=== PATIENT | male | born 2005 | race Caucasian/White ===

== ENCOUNTER 2025-05-08 12:12 | Inpatient (IN) | payer OTHER, SELFPAY ==
[2025-05-08 12:22] VITALS: BP 132/76; PULSE 104; RESP 16; O2SAT 98; BMI 21.4
--- NOTE | 2025-05-08 12:30 | ED_ITS ---
HPI - General Adult General Chief complaint: Psychiatric Symptoms Stated complaint: CRISIS, MENTALLY EXHAUSTED Source: patient and EMS Mode of arrival: ambulatory Limitations: other ( poor historian) History of Present Illness ED Provider: ELIUD Cabello HPI narrative: this is a 20-year-old male history of OCD, ADHD presenting to the emergency department with feeling overwhelmed. Reports increasing life stressors. Reports he recently got a new job which seems to be triggering all of this. He reports he is having racing thoughts and might be slightly manic according to his family. He tells me he is getting easily worked up and is having a hard time calming himself down as well as sleeping. He reports he has had no sleep in a few days. Reports he recently stopped using marijuana and smoking. Denies suicidal and homicidal ideation. Denies alcohol. No medical complaints Related Data Home Medications ?Medication ?Instructions ?Recorded ?Confirmed No Known Home Meds 05/08/25 05/08/25 Allergies Allergy/AdvReac Type Severity Reaction Status Date / Time No Known Allergies Allergy Verified 05/08/25 14:46 Review of Systems 2 Review of Systems: Yes all other systems are reviewed and are negative PMFSH Past Medical History Attestation statement: The following information was validated with the patient. Source: old records reviewed and nursing notes reviewed Social History Social History Alcohol intake: current Alcohol intake frequency: holidays/special occasions only Smoked in Last 30 Days: Yes Use of substances other than those prescribed or required for medical reasons: Yes Substance Use Type: Marijuana Substance Use Frequency: Chronic Longstanding Advance Directives: No Advance Directives Information Provided: Yes Physical Exam ED Exam Exam: Appearance: Alert.? Oriented X3.? No acute distress.?+patient seems overwhelmed, anxious. Unable to sit still. Head: Normocephalic, atraumatic, no step-offs or deformities Eyes: Pupils equal, round and reactive to light.? ENT: Pharynx normal.? Neck: Normal inspection.? Neck supple.? CVS: Normal heart rate and rhythm.? Pulses normal.? Respiratory: No respiratory distress.? Breath sounds normal.? Abdomen: Soft and nontender.? Skin: Skin warm and dry.? Normal skin color.? Normal skin turgor.? Extremities: No lower extremity edema.? No calf ttp. 5/5 strength to bilateral upper and lower extremities Back: No midline tenderness, no C-spine tenderness, full range of motion, no CVA tenderness bilaterally Neuro: Oriented X 3.? No motor deficit.? No sensory deficit. CN 2-12 intact Vital Signs: Vital Signs - 24 hr 05/10/25 15:34 05/11/25 06:00 Temperature 98.2 F 97.6 F Pulse Rate 79 88 Respiratory Rate 18 16 Blood Pressure 139/78 116/87 Pulse Oximetry 100 100 Oxygen Delivery Method Room Air Room Air BMI result Body Mass Index 21.4 Course Reevaluation(s) Reevaluation #1: CBC unremarkable. Chemistry with no acute findings needing intervention. UA without infection. Urine toxicology negative. Ethanol pending. At this time patient will be placed into observation to allow more time to be evaluated by care team. At time observation started patient common cooperative no acute distress will continue to monitor Time: 13:23 Reevaluation #2: Time: 06:12 Date: 05/09/25 Provider: Daniel Saldana MD Patient in physician observation for psychiatric evaluation.? No acute events reported overnight. No current complaints. VS stable.? Patient was evaluated by CARE team and the patient meets inpatient level of care. Patient on a Section 12. Will continue to monitor. Reevaluation #3: Time: 09:01 Date: 05/10/25 Provider: Lorenzo Atkinson MD Patient in physician observation for psychiatric evaluation.? No acute events reported overnight. No current complaints. VS stable.? Patient is in bed search status/pending CARE team evaluation. Will continue to monitor. Additional Reevaluation(s): Time: 07:49 Date: 05/11/25 Provider: Lorenzo Atkinson MD Patient in physician observation for psychiatric evaluation.? No acute events reported overnight. No current complaints. VS stable.? Patient is in bed search status/pending CARE team evaluation. Will continue to monitor. 05/11/2025 13:03 patient will be admitted to the psychiatric unit this will end the ED observation Medications Administered Generic Name Dose Route Start Last Admin Trade Name Freq PRN Reason Stop Dose Admin Lorazepam 2 mg 05/09/25 12:59 05/09/25 18:26 Lorazepam 1 Mg Tablet PO 1 mg Q4H PRN Administration Agitation, anxiety Discontinued Medications Generic Name Dose Route Start Last Admin Trade Name Tona JUAREZN Reason Stop Dose Admin Hydroxyzine HCl 25 mg 05/09/25 20:24 05/09/25 20:38 Hydroxyzine Hcl 25 Mg Tablet PO 05/09/25 20:25 25 mg ONCE ONE Administration Hydroxyzine HCl 25 mg 05/10/25 03:40 05/10/25 03:50 Hydroxyzine Hcl 25 Mg Tablet PO 05/10/25 03:41 25 mg ONCE ONE Administration Hydroxyzine HCl 25 mg 05/10/25 09:45 05/10/25 09:51 Hydroxyzine Hcl 25 Mg Tablet PO 05/10/25 09:46 25 mg ONCE ONE Administration Lorazepam 1 mg 05/08/25 12:29 05/08/25 12:44 Lorazepam 1 Mg Tablet PO 05/08/25 12:30 Not Given ONCE ONE Melatonin 6 mg 05/08/25 21:59 05/08/25 22:04 Melatonin 3 Mg Tablet PO 05/08/25 22:00 6 mg ONCE ONE Administration Melatonin 6 mg 05/09/25 21:22 05/09/25 21:28 Melatonin 3 Mg Tablet PO 05/09/25 21:23 6 mg ONCE ONE Administration Melatonin 3 mg 05/10/25 21:19 05/10/25 21:28 Melatonin 3 Mg Tablet PO 05/10/25 21:20 3 mg ONCE ONE Administration Nicotine 14 mg 05/08/25 19:24 05/09/25 00:53 Nicotine 14 Mg Patch.Td24 TRANSDERMA 05/08/25 19:25 Not Given ONCE ONE Olanzapine 2.5 mg 05/08/25 12:30 05/08/25 12:46 Olanzapine 2.5 Mg Tablet PO 05/08/25 12:31 2.5 mg ONCE ONE Administration Medical Decision Making Medical Decision Making [facility] Narrative: 1232 20-year-old male presents with racing thoughts and feeling overwhelmed. Reports recent life stressors Such as his new job and family. Physical exam patient unable to sit still, anxious appearing, racing thoughts. History and physical exam concerning for schizophrenia versus bipolar versus OCD versus drug-induced psychosis. Will rule out metabolic derangements. Plan labs, urine, care team evaluation 1999Dr.Alyssa patient is relax cooperative denies any stress at this time feels that he can go home case discussed with care team feels that patient should stay in the hospital for possible schizoaffective disorder will like to file section 12 Differential Diagnosis Differential Diagnoses: The differential diagnosis associated with the presentation includes (History and physical exam concerning for schizophrenia versus bipolar versus OCD versus drug-induced psychosis. Will rule out metabolic derangements.) Admission/Observation Consideration of admission/observation: Escalation of care including admission/observation considered Lab Data MDM Lab Attestation statement: I reviewed the patient's lab results. 05/08/25 12:57 05/08/25 12:57 Labs: Lab Results 05/08/25 05/08/25 Range/Units 12:51 12:57 WBC 7.0 (4.8-10.8) X10*3/uL RBC 4.97 (4.60-5.80) X10*6/uL Hgb 14.4 (14.0-18.0) g/dl Hct 39.8 L (42.0-52.0) % MCV 80.1 (80.0-98.0) fL MCH 29.0 (27.0-33.0) pg MCHC 36.2 H (31.0-36.0) g/dl RDW 11.9 (11.0-16.0) % Plt Count 333 (160-400) X10*3/uL MPV 8.3 L (9.4-12.4) fL Immature Gran % (Auto) 0.3 (0.0-0.4) % Neut % (Auto) 71.3 (45-73) % Lymph % (Auto) 17.1 L (20-40) % [place] % (Auto) 10.6 (2-11) % Eos % (Auto) 0.6 (0-4) % Baso % (Auto) 0.1 (0-2) % Lymph # (Auto) 1.2 (1.2-4.9) X10*3/uL [place] # (Auto) 0.7 (0.1-1.2) X10*3/uL Eos # (Auto) 0.0 (0.0-0.4) X10*3/uL Baso # (Auto) 0.0 (0.0-0.2) X10*3/uL Abs Immat Gran (auto) 0.02 (0.00-0.03) X10*3/uL Absolute Neuts (auto) 5.0 (2.0-8.3) x10*3/uL Absolute Nucleated RBC 0.000 (0.0-0.012) X10*3/uL Nucleated RBC % (auto) 0.0 (0.0-0.2) /100WBC Sodium 141 (135-145) mmol/L Potassium 3.8 (3.3-5.1) mmol/L Chloride 105 (96-108) mmol/L Carbon Dioxide 27 (22-29) mmol/L Anion Gap 13 (12-20) BUN 11 (9-16) mg/dL Creatinine 0.94 (0.5-1.4) mg/dL Estim Creat Clear Calc 116.6 Estimated GFR > 60 Random Glucose 123 H (60-115) mg/dL Calcium 10.1 (8.4-10.2) mg/dL Magnesium 2.0 (1.6-2.6) mg/dL Total Bilirubin 0.8 (0.0-1.0) mg/dL AST 29 (5-37) U/L ALT 31 (0-40) U/L Alkaline Phosphatase 63 (39-117) U/L Total Protein 8.1 H (6.5-8.0) g/dL Albumin 5.6 H (3.5-5.0) g/dL Urine Color Yellow Urine Appearance Cloudy Urine pH 7.0 (5.0-9.0) Ur Specific [place] 1.020 (1.005-1.025) Urine Protein Negative (Neg-Trace) mg/dL Urine Glucose (UA) Negative (Negative) mg/dL Urine Ketones Trace (Negative) mg/dL Urine Blood Negative (Negative) Urine Nitrite Negative (Negative) Ur Leukocyte Esterase Negative (Negative) Urine Opiates Screen Not Detected (Not Detect) Ur Buprenorphine Scrn Not Detected (Not Detect) ng/mL Ur Oxycodone Screen Not Detected (Not Detect) ng/mL Urine Methadone Screen Not Detected (Not Detect) ng/mL Urine Fentanyl Screen Not Detected (Not Detect) Ur Barbiturates Screen Not Detected (Not Detect) Ur Phencyclidine Scrn Not Detected (Not Detect) Ur Amphetamines Screen Not Detected (Not Detect) U Benzodiazepines Scrn Not Detected (Not Detect) Urine Cocaine Screen Not Detected (Not Detect) U Marijuana (THC) Screen POSITIVE H (Not Detect) Ethyl Alcohol < 10 mg/dL Independent Historian Clinical information obtained from an independent historian. History obtained from or confirmed by: EMS Chronic Conditions Patient?s care impacted by: Other (se hpi ) Critical Care Time Critical Care Time Critical Care Time: No Discharge Plan Discharge Clinical Impression: Acute anxiety, Adjustment disorder with anxiety, Acute psychosis, Manic behavior Patient Disposition: Admitted As Inpatient Interventions: [place]-Suicide Risk Severity Scale Last Done: 05/11/25 06:43
--- NOTE | 2025-05-08 12:46 | PC.NURSE ---
RE: zyprexa admin Pt given 2.5 mg Zyprexa (5mg tablet pulled originally and cut in half)
[2025-05-08 13:04] LABS: MANUAL DIFF FLAG NO
[2025-05-08 13:05] LABS: Appearance Urine Cloudy; Glucose Urine UA Negative (Negative); PH 7.0 (5.0-9.0); Specific Gravity - Urine 1.020 (1.005-1.025)
[2025-05-08 13:07] LABS: Hematocrit 39.8 % (42.0-52.0); Hemoglobin 14.4 g/dl (14.0-18.0); Imm Gran Abs Auto 0.02 X10*3/uL (0.00-0.03); Imm Gran Pct Auto 0.3 % (0.0-0.4); Lymphocytes Absolute Auto 1.2 X10*3/uL (1.2-4.9); Mean Corpuscular HGB Conc 36.2 g/dl (31.0-36.0); Mean Corpuscular Hemoglobin 29.0 pg (27.0-33.0); Mean Corpuscular Volume 80.1 fL (80.0-98.0); NRBC Abs Auto 0.000 X10*3/uL (0.0-0.012); NRBC Pct Auto 0.0 /100WBC (0.0-0.2); Platelet Count 333 X10*3/uL (160-400); Red Blood Count 4.97 X10*6/uL (4.60-5.80); White Blood Count 7.0 X10*3/uL (4.8-10.8)
[2025-05-08 13:09] VITALS: BP 147/88; PULSE 115; RESP 16; TEMP 36.2; O2SAT 99
[2025-05-08 13:17] LABS: Cannabinoid Screen Urine POSITIVE (Not Detect)
[2025-05-08 13:21] LABS: Alanine Aminotransferase 31 U/L (0-40); Albumin Level 5.6 g/dL (3.5-5.0); Alkaline Phosphatase 63 U/L (39-117); Anion Gap 13 (12-20); Aspartate Amino Transferase 29 U/L (5-37); Blood Urea Nitrogen 11 mg/dL (9-16); Calcium 10.1 mg/dL (8.4-10.2); Carbon Dioxide 27 mmol/L (22-29); Chloride 105 mmol/L (96-108); Creatinine Clr Calc Pharmacy 116.6; Estimated Glomerular Filt Rate > 60; Magnesium 2.0 mg/dL (1.6-2.6); Potassium 3.8 mmol/L (3.3-5.1); Sodium 141 mmol/L (135-145); Total Protein 8.1 g/dL (6.5-8.0)
--- NOTE | 2025-05-08 14:45 | PC.NURSE ---
This RN spoke to pts parents out in the waiting room, parents are very concerned about pts safety and ability to be discharged safely. Parents updated on typical course of care Mom: Barbara [phone] Dad: Young [phone]
--- NOTE | 2025-05-08 18:38 | PC.NURSE ---
pt listening to music on headphones, no apparent distress is noted at this time
[2025-05-08 22:00] VITALS: RESP 16
--- NOTE | 2025-05-09 00:47 | PC.NURSE ---
Pt sleeping on bed in room.
[2025-05-09 06:12] VITALS: BP 122/71; PULSE 96; RESP 16; TEMP 36.8; O2SAT 100
--- NOTE | 2025-05-09 07:13 | PC.NURSE ---
Assumed care of patient at 0645, patient appears to be in no apparent distress this am, calm and cooperative, pacing around BH pod listening to music, offering no complaints to this RN. Continue plan of care for IPLOC
--- NOTE | 2025-05-09 14:09 | PC.NURSE ---
Addendum entered by Dasha Fitzgerald RN 05/09/25 14:11: Psych consult placed this am at 0813, no response from psychiatrist at this time Original Note: Pt endorsing frustration with being held here, stating he feels like he is safe to discharge, identifying protective and safety factors. Pt currently denying SI/HI. Pt is currently pending psychiatry
[2025-05-09 14:29] VITALS: BP 136/79; PULSE 67; RESP 20; TEMP 36.9; O2SAT 100
--- NOTE | 2025-05-09 14:45 | PC.NURSE ---
Pt expressing displeasure with conversation with psychiatrist. On phone with family member at this time these fucking people, they really don't understand, it really upsets me
--- NOTE | 2025-05-09 14:47 | PC.NURSE ---
Pt speaking on phone with family, If he doesn't let me go home, I am going to be extremely upset the doctor up on his high horse, thinking he can make any decisions like that , he better have heard me, if he was a professional he would have fucking let me leave he didn't give me a reason for staying here, I just stay here to stay here . I am in senior care right now, all I do is eat, watch TV, and lay down, they are restricting my freedom
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
--- NOTE | 2025-05-09 17:47 | PC.NURSE ---
pt appears to be sleeping, respirations even and unlabored
--- NOTE | 2025-05-09 18:27 | PC.NURSE ---
Re: ativan pt only willing to take 1mg of 2mg ativan dose, okayed
[2025-05-10 05:41] VITALS: BP 119/74; PULSE 64; RESP 16; TEMP 36.7; O2SAT 100
--- NOTE | 2025-05-10 07:16 | PC.NURSE ---
Assumed care of patient at 0645, patient appears to be in no apparent distress this am, calm and cooperative, offering no complaints to this RN, ambulating with steady gait around BH pod. Continue plan of care for IPLOC
--- NOTE | 2025-05-10 07:36 | PHA.MEDREC ---
Addendum entered by Imer Maciel PharmD 05/10/25 07:37: reviewed Original Note: Pharmacy Consult ? Medication Reconciliation Pharmacy has reviewed the medication reconciliation nursing.
[2025-05-10 15:34] VITALS: BP 139/78; PULSE 79; RESP 18; TEMP 36.8; O2SAT 100
[2025-05-11 06:00] VITALS: BP 116/87; PULSE 88; RESP 16; TEMP 36.4; O2SAT 100
[2025-05-11 14:50] VITALS: BP 149/85; PULSE 93; TEMP 36.4; O2SAT 100
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
[2025-05-11 20:00] VITALS: BP 147/62; PULSE 78; TEMP 36.2; O2SAT 100
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
[2025-05-12 07:58] VITALS: BP 145/73; PULSE 88; RESP 18; TEMP 36.6; O2SAT 100
[2025-05-12 08:30] LABS: Hemoglobin A1C 143.4463 umol/L; Total Hemoglobin (HGBA1C) 4062.8322 umol/L
[2025-05-12 08:38] LABS: Alanine Aminotransferase 36 U/L (0-40); Albumin Level 5.4 g/dL (3.5-5.0); Alkaline Phosphatase 71 U/L (39-117); Anion Gap 16 (12-20); Aspartate Amino Transferase 22 U/L (5-37); Blood Urea Nitrogen 12 mg/dL (9-16); Calcium 10.5 mg/dL (8.4-10.2); Carbon Dioxide 31 mmol/L (22-29); Chloride 102 mmol/L (96-108); Cholesterol 148 mg/dL (<200); Creatinine Clr Calc Pharmacy 144.2; Estimated Glomerular Filt Rate > 60; HDL Cholesterol 59 mg/dL (>40); Potassium 4.8 mmol/L (3.3-5.1); Sodium 144 mmol/L (135-145); Total Protein 8.0 g/dL (6.5-8.0); Triglycerides 88 mg/dL (<150)
[2025-05-12 09:12] LABS: Free T4 (Free Thyroxine) 1.07 ng/dL (0.71-1.85); Thyroid Stimulating Hormone 1.03 uIU/mL (0.32-4.0)
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
[2025-05-12 19:40] VITALS: BP 120/80; PULSE 84; TEMP 36.8; O2SAT 99
[2025-05-13 07:53] VITALS: BP 142/77; PULSE 106; RESP 16; TEMP 36.6; O2SAT 99
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
[2025-05-13 20:10] VITALS: BP 129/71; PULSE 84; RESP 16; TEMP 36.8; O2SAT 100
[2025-05-14 08:00] VITALS: BP 131/79; PULSE 80; TEMP 36.6; O2SAT 100
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
== END 2025-05-14 11:28 | disposition home or self-care (01) | DRG 885 ==
LOC: HO.ED 05-11 12:57 → HO.PM5 05-11 12:58
PROVIDERS: Physician Assistant; Admitting Provider Nurse Practitioner Psychiatric/Mental Health; Emergency Provider Emergency Medicine Emergency Medical Services; Visit Provider Nurse Practitioner Psychiatric/Mental Health
DX: F31.10 Bipolar disorder, current episode manic without psychotic features, unspecified (principal); F41.9 Anxiety disorder, unspecified; F90.9 Attention-deficit hyperactivity disorder, unspecified type; Z63.72 Alcoholism and drug addiction in family; Z62.820 Parent-biological child conflict
CPT/HCPCS: 36415; 80053; 80061; 80307; 81003; 83036; 83735; 84439; 84443; 85025; 99285; S9485

== ENCOUNTER → 2025-05-08 13:17 | Outpatient (BNV) | payer OTHER, SELFPAY | PROVIDERS: Emergency Provider Emergency Medicine Emergency Medical Services; Visit Provider Psychiatry & Neurology Psychiatry | DX: F41.9 Anxiety disorder, unspecified (principal); F31.10 Bipolar disorder, current episode manic without psychotic features, unspecified | CPT/HCPCS: 99284 ==